=== PATIENT | male | born 1950 | race Caucasian/White ===

== ENCOUNTER → 2017-03-14 | Outpatient (CLI) | payer OTHER ==
[~2017-03-14] MED LIST: ADULT LOW DOSE81 M1 PO; CLOPIDOGREL75 MG PO; HYDROCODON-ACE1 EAC7 PO; K-DUR20 MEQ PO; LASIX40 MG PO; LASIX80 MG PO; LEVEMIR100 UNIT/2 SC; LISINOPRIL20 MG PO; PLAVIX75 MG PO; PRAVASTATIN SOD40 MG PO; SYMBICORT60 INHALAT IH; ZOCOR20 MG PO
== END | disposition home or self-care (01) ==
LOC: RAD 08:31
DX: Q63.2 Ectopic kidney (principal); R18.8 Other ascites; J90 Pleural effusion, not elsewhere classified; J98.11 Atelectasis; I70.0 Atherosclerosis of aorta; R93.5 Abnormal findings on diagnostic imaging of other abdominal regions, including retroperitoneum
CPT/HCPCS: 74176